=== PATIENT | male | born 1960 | race Native Hawaiian/Other Pacific Islander ===

== ENCOUNTER 2019-06-30 11:31 | Emergency (ER) | payer OTHER ==
[~2019-06-30] VITALS: Ht 188 cm; Wt 122.5 kg
[2019-06-30 11:46] VITALS: TEMP 98.5
[2019-06-30 16:30] VITALS: BP 148/99
== END 2019-06-30 16:30 | disposition home or self-care (01) ==
LOC: ED 11:31
DX: K02.9 Dental caries, unspecified (principal); K04.7 Periapical abscess without sinus
CPT/HCPCS: 99282

== ENCOUNTER 2020-07-27 08:33 | Outpatient (CLI) | payer OTHER | END 2020-07-27 22:05 | disposition home or self-care (01) | LOC: INF 08:33 | PROVIDERS: ATTEND Internal Medicine | DX: Z23 Encounter for immunization (principal) | CPT/HCPCS: 96372 ==

== ENCOUNTER 2020-08-18 08:18 | Outpatient (CLI) | payer OTHER | END 2020-08-18 22:11 | disposition home or self-care (01) | LOC: INF 08:18 | PROVIDERS: ATTEND Internal Medicine | DX: Z23 Encounter for immunization (principal) | CPT/HCPCS: 96372 ==

== ENCOUNTER 2020-09-28 10:08 | Outpatient (CLI) | payer OTHER | END 2020-09-28 21:29 | disposition home or self-care (01) | LOC: RAD 10:08 | PROVIDERS: ATTEND Nurse Practitioner Family | DX: J44.9 Chronic obstructive pulmonary disease, unspecified (principal) ==